=== PATIENT | male | born 1955 | race Caucasian/White ===

== ENCOUNTER 2024-10-31 16:35 | Emergency (ER) | payer OTHER ==
[~2024-10-31] VITALS: Ht 172.7 cm; Wt 56.7 kg
[2024-10-31 17:09] VITALS: PULSE 87; RESP 18; TEMP 98.6
[2024-10-31] MEDS ORDERED: ACETAMINOPHEN-1 EAC4 PO (19:31)
[2024-10-31 20:30] VITALS: BP 134/73; PULSE 83; RESP 16; O2SAT 95
== END 2024-10-31 20:35 | disposition home or self-care (01) ==
LOC: ER 18:30
DX: S82.842A Displaced bimalleolar fracture of left lower leg, initial encounter for closed fracture (principal); S61.511A Laceration without foreign body of right wrist, initial encounter; S00.81XA Abrasion of other part of head, initial encounter; W20.8XXA Other cause of strike by thrown, projected or falling object, initial encounter; Y99.0 Civilian activity done for income or pay
CPT/HCPCS: 70450; 72125; 99283